=== PATIENT | female | born 1975 | race African-American/Black ===

== ENCOUNTER 2024-02-15 04:38 | Emergency (ER) | payer SELFPAY ==
[~2024-02-15] VITALS: Ht 172.7 cm; Wt 104.0 kg
[2024-02-15 04:44] VITALS: O2SAT 99
[2024-02-15 06:42] LABS: HEMATOCRIT 40.4 % (36.0-48.0); HEMOGLOBIN 12.9 g/dL (12.0-16.0); MEAN CORPUSCULAR HEMOGLOBIN 26.9 pg (28.0-32.0); PLATELET 404 x1000/uL (130-400); RED BLOOD CELL COUNT 4.81 mill/uL (4.2-5.4); RED CELL DISTRIBUTION WIDTH 15.2 % (11.6-14.6); WHITE BLOOD COUNT 9.1 x1000/uL (4.5-11.0)
[2024-02-15 06:45] LABS: CHLORIDE 106 mEq/L (98-107); POTASSIUM 3.7 mEq/L (3.5-5.1); SODIUM 140 mEq/L (136-145)
[2024-02-15 06:46] LABS: CARBON DIOXIDE 20 mEq/L (21-32)
[2024-02-15 06:51] LABS: CREATININE 0.7 mg/dL (0.6-1.0); GLUCOSE 108 mg/dL (70-105); UREA NITROGEN BLOOD 9 mg/dL (9-23)
[2024-02-15 06:53] LABS: ACETAMINOPHEN < 2 ug/mL (10-30)
[2024-02-15 07:00] LABS: ETHANOL BLOOD 292 mg/dL (<10)
[2024-02-15 07:19] LABS: HCG SCREEN NEGATIVE
[2024-02-15 09:14] VITALS: BP 124/78; PULSE 77; RESP 14
[2024-02-15 09:26] VITALS: TEMP 98.5
[2024-02-15] MEDS: ACETAMINOPHEN 500MG TABLET PO NR (09:26)
== END 2024-02-15 09:27 | disposition home or self-care (01) ==
LOC: ER 04:56
DX: F10.129 Alcohol abuse with intoxication, unspecified (principal); Y90.8 Blood alcohol level of 240 mg/100 ml or more
CPT/HCPCS: 36415; 80048; 80307; 80320; 80329; 84703; 85027; 99283; G0480